=== PATIENT | female | born 1970 | race Caucasian/White ===

== ENCOUNTER 2017-01-27 05:30 | Observation (INO) | payer BC ==
--- NOTE | 2017-01-26 20:37 | MH ---
cc: ASHLEY THRASHER M.D. DATE OF ADMISSION: 01/27/2017 HISTORY OF PRESENT ILLNESS: The patient is a 46-year-old white female 2, para 1-0-1-1 who has been having just about a one year history of worsening pain with her periods and dyspareunia. She has had an ablation in the past about one to two years ago, so she does not really have heavy bleeding, but she is having significant pain. She would like definitive treatment with removal of the uterus. We talked about doing a LASH with bilateral salpingectomies and the patient is interested in that. She is aware of the risks of the surgery including but not limited to infection, bleeding, damage to internal organs requiring repair such as damage to the pelvic vasculature, the ureter, the bladder and the bowel. PAST MEDICAL HISTORY: The past medical history on the patient includes: 1. Gastroesophageal reflux disease (GERD). 2. Insomnia. PAST SURGICAL HISTORY: 1. Appendectomy. 2. Endometrial ablation. MEDICATIONS: Medications currently are: 1. Omeprazole. 2. Flonase. ALLERGIES TO MEDICATIONS: None. SOCIAL HISTORY: No tobacco. Occasional alcohol. No drug use. She is and works in bookkeeping. FAMILY HISTORY: A family history of lymphoma and ovarian cancer. GYNECOLOGIC HISTORY: No abnormal Paps. No STDs. OBSTETRICAL HISTORY: x1, an ectopic x1. LABORATORY DATA: Laboratory values on the patient include a Pap smear which is negative. An ultrasound which reveals a normal sized uterus with three small a probable fibroids and a 2.7 cm left ovarian cyst. An endometrial biopsy and ECC which both came back benign. ASSESSMENT AND PLAN: Dysmenorrhea and dyspareunia refractory to an ablation. PLAN: The plan be for LASH with bilateral salpingectomies. MD AKUA Brush/JCEmmy /8:03 PM /8:27 PM
[~2017-01-27] VITALS: Ht 162.6 cm; Wt 97.3 kg
[~2017-01-27 05:30] MED LIST: FURO20TA PO; GLYC1TAB15 PO; IMIT100T PO; PROM50TA PO; TRIA1TAB21 PO
[2017-01-27] MEDS ORDERED: METOPROLOL TARTRATE 25 MG TAB PO PRN (06:00)
[2017-01-27] MEDS ORDERED: LACTATED RINGER'S 1000 ML IV PRN (06:00)
[2017-01-27] MEDS ORDERED: ceFAZolin 2 GM PREMIX 50 ML IV SCH (06:00)
[2017-01-27] MEDS ORDERED: INSULIN HUMAN REGULAR 1,000 UNITS/10 ML VIAL SQ PRN (06:00)
[2017-01-27] MEDS ORDERED: POVIDONE IODINE 5% (ANTISEPSIS KIT) 4 APPLICATIONS EACH NARE PRN (06:00)
[2017-01-27] MEDS ORDERED: SODIUM CHLORID 0.9% 500 ML IV PRN (06:00)
[2017-01-27] MEDS ORDERED: CHLORHEXIDINE GLUCONATE 2 % 1 PACK (2 CLOTHS) TOPICAL PRN (06:00)
[2017-01-27 06:31] VITALS: BP 129/86; PULSE 102; RESP 16; TEMP 98.7; O2SAT 97
[2017-01-27 06:48] LABS: AUTOMATED NEUTROPHIL # 1.8 TH/MM3 (1.8-7.7); BASOPHIL # 0.1 TH/MM3 (0-0.2); BASOPHIL % 1.3 % (0.0-2.0); EOSINOPHIL # 0.3 TH/MM3 (0-0.4); EOSINOPHIL % 6.6 % (0.0-4.0); HEMATOCRIT 38.2 % (35.0-46.0); HEMO FLAGS DIFF FINAL; LYMPH % 45.8 % (9.0-44.0); LYMPHOCYTE # 2.2 TH/MM3 (1.0-4.8); MEAN CELL VOLUME 93.4 FL (80.0-100.0); MEAN CORPUSCULAR HEMOGLOBIN 33.1 PG (27.0-34.0); MEAN CORPUSCULAR HGB CONC 35.4 % (32.0-36.0); MONO % 8.2 % (0.0-8.0); NEUT % 38.1 % (16.0-70.0); PLATELET COUNT 282 TH/MM3 (150-450); RED BLOOD COUNT 4.09 MIL/MM3 (4.00-5.30); RED CELL DISTRIBUTION WIDTH 12.5 % (11.6-17.2); WHITE BLOOD COUNT 4.8 TH/MM3 (4.0-11.0)
[2017-01-27] MEDS ORDERED: ACETAMINOPHEN 1000 MG/100 ML VIAL IV ONE (07:02)
[2017-01-27] MEDS ORDERED: MIDAZOLAM HCL 2 MG/2 ML VIAL ONE (07:02)
[2017-01-27] MEDS ORDERED: fentaNYL CITRATE 250 MCG/5 ML AMP ONE (07:02)
[2017-01-27] MEDS ORDERED: FAMOTIDINE 20 MG/2 ML VIAL ONE (07:03)
[2017-01-27] MEDS ORDERED: DEXAMETHASONE SOD PHOS 4 MG/ML VIAL ONE (07:03)
[2017-01-27] MEDS ORDERED: BUPIVACAINE HCL PF 0.5% 30 ML VIAL ONE (07:07)
[2017-01-27] MEDS ORDERED: MORPHINE SULFATE 4 MG/ML INJ ONE (07:22)
[2017-01-27] MEDS ORDERED: oxyCODONE/ACETAMINOPHEN 5 MG/325 MG TAB PO PRN (09:30)
[2017-01-27] MEDS ORDERED: ONDANSETRON HCL 4 MG/2 ML VIAL IVP PRN (09:30)
[2017-01-27] MEDS ORDERED: SODIUM CHLORIDE 0.9% FLUSH 10 ML FLUSH IV FLUSH PRN (09:30)
[2017-01-27] MEDS ORDERED: KETOROLAC TROMETHAMINE 30 MG/ML (IVP) VIAL IVP PRN (09:30)
[2017-01-27] MEDS ORDERED: DO NOT ADM ANY ANTICOAGULANT DRUGS PRN (09:40)
[2017-01-27] MEDS ORDERED: *morphine SULFATE 8 MG/ML PERIprocedure ONLY ONE ×3 (09:45→10:47)
[2017-01-27] MEDS ORDERED: *HYDROmorphone PF 1 MG VIAL PERIprocedural Use ONLY ONE (11:31)
--- NOTE | 2017-01-27 11:51 | MP ---
cc: ASHLEY THRASHER M.D. DATE OF SURGERY 01/27/2017 PREOPERATIVE DIAGNOSES Dysmenorrhea and dyspareunia. Failed endometrial ablation. POSTOPERATIVE DIAGNOSES Dysmenorrhea and dyspareunia. Failed endometrial ablation. PROCEDURE PERFORMED Laparoscopic assisted supracervical hysterectomy with bilateral salpingectomies. OPERATING SURGEON Dr. Ashley Thrasher ANESTHESIA General endotracheal. FINDINGS IN SURGERY About a 10 weeks' sized boggy uterus, a left paratubal simple cyst. Normal-appearing left ovary. Normal-appearing right ovary. The rest of the pelvis normal. ESTIMATED BLOOD LOSS Blood loss 100 cc. COMPLICATIONS None. PROCEDURE IN DETAIL After proper consents were obtained, blood type had been typed and screened. The patient was taken to the operating room where general endotracheal anesthesia was applied. She was then placed in dorsal position, sterilely prepped and draped and a Alexander catheter was placed. At this time lidocaine with epinephrine solution was injected in the umbilicus. We made a 5-mm incision in the umbilicus. We placed a 5-mm trocar under direct visualization into the abdominopelvic cavity. We insufflated until adequate level of pneumoperitoneum. We then placed a 10/12 trocar site in the left mid-axillary lower quadrant without difficulty and we placed a 5-mm trocar in the right mid-axillary line in the lower quadrant. At this time we came across the tube using the Enseal, following along the broad ligament until its connection to the uterus. We came across the round ligament. We came across the utero-ovarian ligament. We developed our bladder flap anteriorly, skeletonized the uterine vessels on the left and came across the vessels on the left without difficulty. We then did the same procedure on the right side. We came beneath the tube, through the broad ligament to the origin of the tube from the uterus. We came across the round ligament through the uteroovarian ligament. We skeletonized the uterine vessels, completed the bladder flap and came across the uterine vessels without difficulty. At this time using harmonic scalpel we began the amputation of the uterus and part of the cervix without difficulty. We came across that nicely. There was no bleeding. We then morcellated out the tubes and the uterus without difficulty, taking out any small pieces in the cul-de-sac and up in the upper abdomen. We then irrigated copiously. Hemostasis was assured. We overlaid the cervical stump with Interceed. We then closed the 10/12 site using a Wes-Nish and a 0 Vicryl with excellent closure of the fascia visualized. We then desufflated her abdomen, removed our instruments. We closed the skin incisions with a 4-0 Monocryl in a subcuticular fashion. Counts were correct and the patient was stable to the recovery room. MD AKUA Brush/SSB /10:39 AM /11:42 AM
[2017-01-27] MEDS ORDERED: ONDANSETRON HCL 4 MG/2 ML VIAL IV PUSH ONE (12:00)
[2017-01-27] MEDS ORDERED: LACTATED RINGER'S 1000 ML INJ 1,000 ML IV ONE (12:00)
[2017-01-27] MEDS ORDERED: PROPOFOL 200 MG/20 ML AMP IV ONE (12:00)
[2017-01-27] MEDS ORDERED: NEOSTIGMINE 3 MG/3 ML SYR IV ONE (12:00)
[2017-01-27] MEDS ORDERED: KETOROLAC TROMETHAMINE 60 MG/2 ML (IM) VIAL IM ONE (12:00)
[2017-01-27] MEDS: oxyCODONE/ACETAMINOPHEN 5 MG/325 MG TAB PO PRN ×2 (14:42→22:08)
[2017-01-27 15:00] VITALS: BP 133/81; PULSE 95; RESP 20; TEMP 97.6; O2SAT 98
[2017-01-27 16:00] VITALS: BP 158/71; PULSE 81; RESP 18; TEMP 97.6; O2SAT 98
[2017-01-27] MEDS ORDERED: PROMETHAZINE HCL 25 MG TAB PO PRN (18:30)
[2017-01-27 20:00] VITALS: BP 146/79; PULSE 87; RESP 18; TEMP 97.4; O2SAT 98
[2017-01-27] MEDS: SODIUM CHLORIDE 0.9% FLUSH 10 ML FLUSH IV FLUSH SCH (21:00)
[2017-01-27] MEDS ORDERED: ZOLPIDEM TARTRATE 10 MG TAB PO PRN (21:00)
[2017-01-28] VITALS: BP 134/76; PULSE 99; RESP 18; TEMP 99.7; O2SAT 98
[2017-01-28] MEDS: HYDROmorphone HCL PF 1 MG/ML VIAL IVP PRN ×2 (02:12→06:05)
[2017-01-28 04:00] VITALS: BP 133/68; PULSE 95; RESP 18; TEMP 97.8; O2SAT 96
[2017-01-28 04:59] VITALS: O2SAT 96
[2017-01-28 06:01] LABS: AUTOMATED NEUTROPHIL # 6.2 TH/MM3 (1.8-7.7); BASOPHIL % 0.5 % (0.0-2.0); EOSINOPHIL % 0.3 % (0.0-4.0); HEMATOCRIT 34.3 % (35.0-46.0); HEMO FLAGS DIFF FINAL; LYMPH % 22.6 % (9.0-44.0); MEAN CELL VOLUME 94.6 FL (80.0-100.0); MEAN CORPUSCULAR HGB CONC 33.8 % (32.0-36.0); MONO % 6.3 % (0.0-8.0); NEUT % 70.3 % (16.0-70.0); PLATELET COUNT 289 TH/MM3 (150-450); RED BLOOD COUNT 3.62 MIL/MM3 (4.00-5.30); RED CELL DISTRIBUTION WIDTH 12.7 % (11.6-17.2); WHITE BLOOD COUNT 8.8 TH/MM3 (4.0-11.0)
[2017-01-28] MEDS: SODIUM CHLORIDE 0.9% FLUSH 10 ML FLUSH IV FLUSH SCH (07:40)
[2017-01-28 08:00] VITALS: BP 138/75; PULSE 85; RESP 16; TEMP 97.1; O2SAT 97
[2017-01-28] MEDS: oxyCODONE/ACETAMINOPHEN 5 MG/325 MG TAB PO PRN (10:07)
[2017-01-28 10:58] VITALS: O2SAT 98
[2017-01-28] MEDS ORDERED: OXYC1TAB63 PO (12:57)
--- NOTE | 2017-01-28 12:58 | HHI.DCPOC ---
Discharge Care Plan Report Symptoms to Your Doctor -Temperate above 100.5 degrees -Redness, of incision or excessive or foul smelling drainage -Unusual pain or calf pain -Increased vaginal bleeding -Painful or difficulty urinating -Feelings of extreme sadness or anxiety after 2 weeks Goals to Promote Your Health * To prevent worsening of your condition and complications * To maintain your health at the optimal level Directions to Meet Your Goals Take your medications as prescribed Follow your dietary instruction Follow activity as directed Ensure plenty of rest for recovery Drink fluids for hydration Keep your appointments as scheduled Take your immunizations and boosters as scheduled If your symptoms worsen call your PCP, if no PCP go to Urgent Care Center or Emergency Room Smoking is Dangerous to Your Health. Avoid second hand smoke Call the 24-hour crisis hotline for domestic abuse at Aretha Hernandez MD Jan 28, 2017 12:58
== END 2017-01-28 13:31 | disposition home or self-care (01) ==
LOC: HSDC 05:30 → HSDI 11:34 → HOCA 14:15
PROVIDERS: ADMIT Obstetrics & Gynecology; ATTEND Obstetrics & Gynecology
DX: N80.0 Endometriosis of uterus (principal); N83.8 Other noninflammatory disorders of ovary, fallopian tube and broad ligament; K21.9 Gastro-esophageal reflux disease without esophagitis; N94.6 Dysmenorrhea, unspecified; N94.10 Unspecified dyspareunia; G47.00 Insomnia, unspecified; J45.909 Unspecified asthma, uncomplicated
CPT/HCPCS: 58542; 84703; 85025; 86850; 86900; 86901; 88307; 94150; C1765; G0378; J0131; J0690; J1100; J1170; J1885; J2250; J2270; J2405; J2710; J3010; J7120; Q0169; 88331